=== PATIENT | male | born 1990 | race Caucasian/White ===

== ENCOUNTER 2019-01-13 10:30 | Emergency (ER) | payer MEDICAID ==
[~2019-01-13] VITALS: Ht 172.7 cm; Wt 94.3 kg
[2019-01-13 10:52] VITALS: Ht 172.7 cm; Wt 94.3 kg
[2019-01-13 12:10] VITALS: BP 117/80
== END 2019-01-13 12:59 | disposition home or self-care (01) ==
LOC: ED 10:30
DX: J06.9 Acute upper respiratory infection, unspecified (principal); F17.210 Nicotine dependence, cigarettes, uncomplicated
CPT/HCPCS: 99406; J1100

== ENCOUNTER 2020-08-05 15:55 | Emergency (ER) | payer OTHER | END 2020-08-05 16:39 | disposition left against medical advice (07) | LOC: ED 15:55 | DX: Z53.21 Procedure and treatment not carried out due to patient leaving prior to being seen by health care provider (principal) ==